=== PATIENT | female | born 1990 | race Caucasian/White ===

== ENCOUNTER 2021-03-27 10:36 | Emergency (ER) | payer OTHER ==
[~2021-03-27] VITALS: Ht 160 cm; Wt 61.2 kg
[~2021-03-27 10:36] MED LIST: AUGMENTIN 875-1 EACH PO; JOLESSA1 EACH PO
[2021-03-27 10:42] VITALS: BP 138/89
[2021-03-27 12:15] LABS: ABSOLUTE NEUTROPHILS 5.6 thou/uL (1.4-8.2); BASOPHILS 0.8 % (0.0-2.0); EOSINOPHILS 0.7 % (0.0-3.0); HEMATOCRIT 42.6 % (37.0-47.0); HEMOGLOBIN 15.1 gm/dL (12.0-15.0); LYMPHOCYTES 21.4 % (24.0-44.0); MCH 31.8 pg (26.0-34.0); MCHC 35.3 g/dL (28.0-37.0); MCV 89.8 fL (80.0-100.0); MONOCYTES 6.2 % (1.0-8.0); POLYS 70.9 % (36.0-66.0); RBC 4.74 mil/uL (4.20-5.00); RDW 12.9 % (10.5-14.5); WBC 7.8 thou/uL (4.0-11.0)
[2021-03-27 12:32] LABS: CALCIUM 9.2 mg/dL (8.5-10.1); CREATININE 0.7 mg/dL (0.6-1.0); POTASSIUM 4.1 mmol/L (3.5-5.1)
[2021-03-27 14:10] LABS: PLATELET COUNT 186 thou/uL (150-400)
== END 2021-03-27 12:54 | disposition home or self-care (01) ==
LOC: ER 10:36
PROVIDERS: Nurse Practitioner
DX: R20.0 Anesthesia of skin (principal); R20.2 Paresthesia of skin